=== PATIENT | male | born 1960 | race Caucasian/White ===

== ENCOUNTER 2016-11-09 14:06 | Emergency (ER) | payer BC, OTHER ==
[~2016-11-09] VITALS: Ht 165.1 cm; Wt 100.0 kg
--- NOTE | 2016-11-09 14:16 | ERA ---
ER Documentation Chief Complaint Date/Time DATE: 11/09/16 TIME: 14:16 Chief Complaint Headache HPI The patient is a 56-year-old male, presenting to the ER because of headache that began about an hour prior to arrival. He had similar symptoms previously, denies fever, chills, congestion, neck pain, chest pain, dyspnea, abdominal pain , vomiting, dysuria, diarrhea. He does not smoke or drink. Past medical history: Hypertension, history of CVA, diabetes mellitus, dyslipidemia ROS All systems reviewed and are negative except as per history of present illness. Medications Home Meds Active Scripts Hydrocodone/Acetaminophen ([place] 5-325 Tablet) 1 Each Tablet, 1 TAB PO Q6H Y for PAIN, #10 TAB Prov:KERWIN KELLER MD 11/09/16 Ibuprofen* (Motrin*) 600 Mg Tab, 600 MG PO Q6H Y for PAIN AND OR ELEVATED TEMP, #20 TAB Prov:KERWIN KELLER MD 11/09/16 Azithromycin* (Zithromax*) 250 Mg Tablet, 250 MG PO .ZPACK DIRECTED, #6 TAB TAKE 500 MG (2 TABS) THE FIRST DAY THEN 250 MG (1 TAB) DAYS 2-5 Prov:KERWIN KELLER MD 11/09/16 Reported Medications Insulin Regular, Human (Humulin R) 100 Unit/1 Ml Vial, 0 IJ SLIDING SCALES, VIAL IF SB 90-150=5 UNITS, 151-200=8 UNITS, 201-250=11 UNITS, 251-300=14 UNITS, 301-350=17 UNITS. 11/09/16 Insulin NPH Human Isophane (Humulin N) 100 Unit/1 Ml Vial, 45 UNIT SQ BID, VIAL AND TAKE IF BS 89-90=5UNITS. 11/09/16 Diltiazem Hcl* (Cardizem SR*) 90 Mg Capsr, 90 MG PO TID, #60 CAP HOLD FOR SBP LESS THAN 110 11/09/16 Warfarin Sodium* (Coumadin*) 5 Mg Tablet, 5 MG PO QHS, TAB 11/09/16 Famotidine* (Famotidine*) 20 Mg Tablet, 20 MG PO QHS, #30 TAB 11/09/16 Hydrochlorothiazide* (Hydrochlorothiazide*) 25 Mg Tab, 25 MG PO QAM, #30 TAB 11/09/16 Atorvastatin* (Atorvastatin*) 40 Mg Tablet, 40 MG PO QHS, #30 TAB 11/09/16 Allergies Allergies: Coded Allergies: lorazepam (Unverified Allergy, Unknown, 11/09/16) Physical Exam Vitals Vital Signs Date Time Temp Pulse Resp B/P Pulse Ox O2 Delivery O2 Flow Rate FiO2 11/09/16 16:03 80 17 115/91 100 Room Air 11/09/16 14:24 98.6 90 19 122/90 100 Physical Exam Const: No acute distress. Head: Atraumatic. Eyes: Normal Conjunctiva. ENT: Normal External Ears, Nose and Mouth. BL tympanic membrane and oropharynx are within normal limit, mild maxillary sinus tenderness Neck: Full range of motion. No meningismus. Resp: Clear to auscultation bilaterally. Cardio: Regular rate and rhythm, no murmurs. Abd: Soft, non distended, normal bowel sounds, non tender. Skin: No petechiae or rashes. Back: No midline or flank tenderness. Ext: No cyanosis, or edema. Neur: Awake and alert. No focal deficit Psych: Normal Mood and Affect. Result Diagram: 11/09/16 1445 11/09/16 1445 Results 24 hrs Laboratory Tests Test 11/09/16 14:45 White Blood Count 6.010^3/ul Red Blood Count 4.4210^6/ul Hemoglobin 12.1g/dl Hematocrit 38.2% Mean Corpuscular Volume 86.4fl Mean Corpuscular Hemoglobin 27.4pg Mean Corpuscular Hemoglobin Concent 31.7g/dl Red Cell Distribution Width 14.3% Platelet Count 82666^3/UL Mean Platelet Volume 11.2fl Neutrophils % 68.9% Lymphocytes % 20.8% Monocytes % 8.7% Eosinophils % 1.0% Basophils % 0.3% Nucleated Red Blood Cells % 0.0/100WBC Neutrophils # 4.110^3/ul Lymphocytes # 1.310^3/ul Monocytes # 0.510^3/ul Eosinophils # 0.110^3/ul Basophils # 0.010^3/ul Nucleated Red Blood Cells # 0.010^3/ul Prothrombin Time 18.3Sec Prothrombin Time Ratio 1.4 INR International Normalized Ratio 1.51 Activated Partial Thromboplast Time 32.7Sec Sodium Level 141mmol/L Potassium Level 3.5mmol/L Chloride Level 103mmol/L Carbon Dioxide Level 25mmol/L Anion Gap 17 Blood Urea Nitrogen 18mg/dl Creatinine 0.86mg/dl Glucose Level 134mg/dl Calcium Level 9.0mg/dl Current Medications Medications (Trade) Dose Ordered Sig/Radha Route PRN Reason Start Time Stop Time Status Last Admin Dose Admin Morphine Sulfate (morphine) 4 mg ONCE STAT IV 11/09/16 14:25 11/09/16 14:26 DC 11/09/16 14:31 Ondansetron HCl (Zofran Inj) 4 mg ONCE STAT IV 11/09/16 14:25 11/09/16 14:26 DC 11/09/16 14:31 Procedures/[place] [id number] Radiology Main Line: [phone] DIAGNOSTIC IMAGING REPORT Patient: MELISA LILLY : 1960 Age: 56 Sex: M MR #: [id number] DOS: 11/09/16 1416 Ordering MD: KERWIN KELLER MD Location: E/R Room/Bed: PROCEDURE: CT Brain without contrast. CLINICAL INDICATION: Headache and dizziness. Visual disturbance. TECHNIQUE: A CT of the brain without contrast was performed utilizing axial sections from the skull base through the vertex. The patient was scanned without intravenous contrast enhancement. Sagittal and coronal reformatted images were obtained using the data from the axial images. Total exam DLP is 630.20 mGy-cm. CTDIvol is 45.01 mGy. One or more of the following dose reduction techniques were used: Automated exposure control, adjustment of the mA and/or kV according to patient size, use of iterative reconstruction technique. COMPARISON: None available FINDINGS: There is a large region of encephalomalacia in the right temporal lobe extending superiorly to the right parietal lobe measuring approximately 8.7 x 3.3 x 2.9 cm in AP, transverse, and cranial caudal dimensions. This is consistent with an old infarct. A second smaller old infarct is present in the left parietal lobe inferiorly laterally measuring 1.7 x 1.7 x 3.1 cm in AP, transverse, and cranial caudal dimensions. There is a small old lacunar infarct in the right basal ganglia measuring 0.2 cm. There is no evidence of recent infarct. There is mild enlargement of the ventricles and subarachnoid spaces consistent with atrophy. There is no intracranial hemorrhage or space-occupying lesion. There is no skull fracture or lytic lesion. There is fluid and mucosal thickening in the right sphenoid sinus. The visualized portions of the paranasal sinuses are otherwise normal. IMPRESSION: 1. Old infarcts in the right temporal lobe and left parietal lobe. 2. Small old lacunar infarct in the right basal ganglia. 3. No acute infarct or intracranial hemorrhage. 4. Fluid and mucosal thickening in the right sphenoid sinus. 5. Otherwise unremarkable noncontrast CT scan of the brain. RPTAT: QQ .Brooks Huff MD, MD Date Time Electronically viewed and signed by .Brooks Huff MD, MD on 11/09/2016 15:29 .R/ CC: KERWIN KELLER MD MEDICAL MAKING DECISION: The patient is a 56-year-old male, presenting with acute headache, acute sinusitis. The differential diagnoses considered include but are not limited to subarachnoid hemorrhage, occult trauma, CVA, meningitis, encephalitis, hypertension, tension, migraine, cluster, narcotic withdrawal, cervical spine disease. Departure Diagnosis: Primary Impression: Sinusitis, acute Additional Impressions: Sinus headache Anemia Condition: Good Comments He was discharged with Zithromax and Motrin and [place] I discussed the findings with the patient. I advised the patient to follow-up with the primary physician in about 1-2 days, sooner if needed and return if any concern. KERWIN KELLER MD Nov 09, 2016 14:16
[2016-11-09 14:24] VITALS: Ht 165.1 cm; Wt 100.0 kg
[2016-11-09] MEDS ORDERED: morphine 4 MG/ML VIAL IV STA (14:25)
[2016-11-09] MEDS ORDERED: ONDANSETRON 4 MG INJ IV STA (14:25)
[2016-11-09 14:56] LABS: ADD SCAN DIFF NO
[2016-11-09 14:59] LABS: BASOPHILS % 0.3 % (0.0-2.0); EOSINOPHILS # 0.1 10^3/ul (0.0-0.5); HEMATOCRIT 38.2 % (42.0-52.0); HEMOGLOBIN 12.1 g/dl (14.0-18.0); LYMPHOCYTES # 1.3 10^3/ul (0.8-2.9); LYMPHOCYTES % 20.8 % (15.0-51.0); MEAN CORPUSCULAR HEMOGLOBIN 27.4 pg (29.0-33.0); MEAN CORPUSCULAR HGB CONC 31.7 g/dl (32.0-37.0); MEAN CORPUSCULAR VOLUME 86.4 fl (82.0-101.0); MEAN PLATELET VOLUME 11.2 fl (7.4-10.4); MONOCYTE # 0.5 10^3/ul (0.3-0.9); MONOCYTES % 8.7 % (0.0-11.0); NEUTROPHIL # 4.1 10^3/ul (1.6-7.5); NEUTROPHILS % 68.9 % (39.0-77.0); PLATELET COUNT 133 10^3/UL (140-415); RED BLOOD COUNT 4.42 10^6/ul (4.70-6.10); RED CELL DISTRIBUTION WIDTH 14.3 % (11.5-14.5)
[2016-11-09 15:09] LABS: INR 1.51; PROTIME 18.3 Sec (12.2-14.2); PT RATIO 1.4
[2016-11-09 15:10] LABS: PARTIAL THROMBOPLASTIN TIME 32.7 Sec (25.0-35.0); POTASSIUM 3.5 mmol/L (3.5-5.1)
[2016-11-09 15:12] LABS: CREATININE 0.86 mg/dl (0.61-1.24)
--- NOTE | 2016-11-09 15:29 | RADRPT ---
PROCEDURE: CT Brain without contrast. CLINICAL INDICATION: Headache and dizziness. Visual disturbance. TECHNIQUE: A CT of the brain without contrast was performed utilizing axial sections from the skul l base through the vertex. The patient was scanned without intravenous contrast enhancement. Sagitta l and coronal reformatted images were obtained using the data from the axial images. Total exam DLP is 630.20 mGy-cm. CTDIvol is 45.01 mGy. One or more of the following dose reduction techniques we re used: Automated exposure control, adjustment of the mA and/or kV according to patient size, use o f iterative reconstruction technique. COMPARISON: None available FINDINGS: There is a large region of encephalomalacia in the right temporal lobe extending superiorly to the r ight parietal lobe measuring approximately 8.7 x 3.3 x 2.9 cm in AP, transverse, and cranial caudal dimensions. This is consistent with an old infarct. A second smaller old infarct is present in th e left parietal lobe inferiorly laterally measuring 1.7 x 1.7 x 3.1 cm in AP, transverse, and crania l caudal dimensions. There is a small old lacunar infarct in the right basal ganglia measuring 0.2 c m. There is no evidence of recent infarct. There is mild enlargement of the ventricles and subarachnoid spaces consistent with atrophy. There is no intracranial hemorrhage or space-occupying lesion. There is no skull fracture or lytic lesion. There is fluid and mucosal thickening in the right sphen oid sinus. The visualized portions of the paranasal sinuses are otherwise normal. IMPRESSION: 1. Old infarcts in the right temporal lobe and left parietal lobe. 2. Small old lacunar infarct in the right basal ganglia. 3. No acute infarct or intracranial hemorrhage. 4. Fluid and mucosal thickening in the right sphenoid sinus. 5. Otherwise unremarkable noncontrast CT scan of the brain. RPTAT: QQ .Brooks Huff MD, MD Date Time Electronically viewed and signed by .Brooks Huff MD, MD on 11/09/2016 15:29 .R/
[2016-11-09] MEDS ORDERED: ATOR40TA68 PO (15:53)
[2016-11-09] MEDS ORDERED: FAMO20TA18 PO (15:54)
[2016-11-09] MEDS ORDERED: HYD25 PO (15:54)
[2016-11-09] MEDS ORDERED: WARF5TAB72 PO (15:55)
[2016-11-09] MEDS ORDERED: CARSR90 PO (15:57)
[2016-11-09] MEDS ORDERED: AZIT250T94 PO (15:58)
[2016-11-09] MEDS ORDERED: IBUP-1542 PO (15:58)
[2016-11-09 16:03] VITALS: BP 115/91; PULSE 80; RESP 17
[2016-11-09] MEDS ORDERED: NPH,100V SQ (16:12)
[2016-11-09] MEDS ORDERED: INSU100V3 IJ (16:15)
[2016-11-09] MEDS ORDERED: HYDR-906 PO (16:25)
== END 2016-11-09 16:25 | disposition home or self-care (01) ==
LOC: E/R 14:06
DX: J01.90 Acute sinusitis, unspecified (principal); D64.9 Anemia, unspecified; I10 Essential (primary) hypertension; E11.9 Type 2 diabetes mellitus without complications; Z79.01 Long term (current) use of anticoagulants; Z79.4 Long term (current) use of insulin
CPT/HCPCS: 36415; 70450; 80048; 85025; 85610; 85730; 96374; 96375; J2270; J2405; Z7502